=== PATIENT | male | born 1975 | race African-American/Black ===

== ENCOUNTER 2021-06-06 00:45 | Emergency (ER) | payer OTHER, MEDICAID ==
[~2021-06-06] VITALS: Ht 180.3 cm; Wt 122.5 kg
[2021-06-06 03:26] VITALS: BP 160/104
[2021-06-06] MEDS ORDERED: KETOROLAC TROMETH 60MG/2ML VIAL IM ONE (03:45)
== END 2021-06-06 03:41 | disposition home or self-care (01) ==
LOC: ER 00:49
DX: M17.12 Unilateral primary osteoarthritis, left knee (principal); E66.9 Obesity, unspecified; Z68.37 Body mass index [BMI] 37.0-37.9, adult
CPT/HCPCS: 73562; 96372; 99283; J1885

== ENCOUNTER 2022-02-07 04:57 | Emergency (ER) | payer OTHER, MEDICAID ==
[~2022-02-07] VITALS: Ht 180.3 cm; Wt 68.5 kg
[2022-02-07 07:06] LABS: Albumin 3.2 g/dL (3.4-5.0); BUN/Creatinine Ratio 12.4; Calcium 8.8 mg/dL (8.5-10.1); Magnesium 2.1 mg/dL (1.6-2.6); Potassium 4.3 mmol/L (3.5-5.1)
[2022-02-07 07:10] LABS: Basophils # (auto) 0 10 ^3/uL (0-0.2); Basophils % (auto) 0.7 % (0.0-2.0); Eosinophils # (auto) 0.1 10 ^3/uL (0-0.8); Hemoglobin 13.4 g/dL (13.5-17.5); Lymphocytes % (auto) 32.3 % (10.0-50.0); Mean Corpuscular Hemoglobin 31.2 pg (28.0-32.0); Mean Corpuscular Hgb Conc. 33.4 g/dL (32.0-36.0); Mean Corpuscular Volume 93.6 fL (80.0-100.0); Monocytes # (auto) 0.5 10 ^3/uL (0-1.3); Monocytes % (auto) 7.2 % (0.0-12.0); Neutrophils # (auto) 3.7 10 ^3/uL (1.6-8.6); Neutrophils % (auto) 58.8 % (37.0-80.0); Nucleated Red Blood Cells % 0.2 %; Red Blood Cells 4.27 10^6/uL (4.5-5.90); Red Cell Distribution Width 13.1 % (11.8-14.3); White Blood Cell 6.3 10^3/uL (4.4-10.8)
[2022-02-07 07:12] LABS: Partial Thromboplastin Time 24.1 sec (23.6-33.0)
[2022-02-07 07:15] LABS: Bilirubin, Total 0.3 mg/dL (0.2-1.0); Total Protein 6.7 g/dL (6.4-8.2)
[2022-02-07] MEDS ORDERED: SODIUM CHLORIDE 0.9% 1,000 ML IV ONE (10:15)
[2022-02-07 10:35] LABS: Urine Bacteria NONE SEEN /hpf (None Seen); Urine Blood Negative /uL (Negative); Urine Specific Gravity 1.023 (1.001-1.035); Urine WBC <1 /hpf (0 - 3)
[2022-02-07 12:00] VITALS: BP 126/86
== END 2022-02-07 12:27 | disposition home or self-care (01) ==
LOC: ER 04:57 → EDBD 04:57 → ER 12:27
DX: R55 Syncope and collapse (principal)
CPT/HCPCS: 36415; 70450; 71045; 80053; 81001; 83735; 83880; 84443; 84484; 85025; 85610; 85730; 93005; 96360; 99285; J7030

== ENCOUNTER 2023-09-10 07:16 | Emergency (ER) | payer OTHER, MEDICAID ==
[~2023-09-10] VITALS: Ht 182.9 cm; Wt 123.9 kg
[~2023-09-10 07:16] MED LIST: CYCL-837 PO; NAP500T PO
[2023-09-10 07:50] VITALS: BP 121/86; PULSE 102; RESP 18; TEMP 97.7; O2SAT 97
[2023-09-10] MEDS ORDERED: METH-1182 PO (08:00)
[2023-09-10] MEDS ORDERED: KETOROLAC TROMETH 60MG/2ML VIAL IM ONE (08:00)
== END 2023-09-10 08:34 | disposition home or self-care (01) ==
LOC: ER 07:16
DX: M54.42 Lumbago with sciatica, left side (principal); M54.41 Lumbago with sciatica, right side; I10 Essential (primary) hypertension; F17.210 Nicotine dependence, cigarettes, uncomplicated; Z79.899 Other long term (current) drug therapy
CPT/HCPCS: 96372; 99283; J1885

== ENCOUNTER 2024-03-17 14:17 | Emergency (ER) | payer BC, MEDICAID ==
[~2024-03-17] VITALS: Ht 180.3 cm; Wt 121.7 kg
[~2024-03-17 14:17] MED LIST changes: +METH-1182 PO
[2024-03-17 15:03] LABS: Urine Bacteria None Seen /hpf (None Seen)
[2024-03-17 15:15] LABS: Urine Blood Negative /uL (Negative); Urine Clarity Clear (Clear); Urine Color Light-Yellow (Yellow); Urine Mucus FEW (None Seen); Urine Protein, UAD Negative (Negative); Urine Specific Gravity 1.016 (1.001-1.035); Urine Urobilinogen Normal (Negative); Urine WBC 1 /hpf (0 - 3); Urine pH 6.5 (5.0-9.0)
[2024-03-17 16:07] VITALS: BP 134/93; PULSE 101; RESP 16; TEMP 97.4; O2SAT 96
[2024-03-17] MEDS ORDERED: NAP500T PO (16:12)
[2024-03-17] MEDS ORDERED: METH4PAK PO (16:12)
[2024-03-17] MEDS: KETOROLAC TROMETH 60MG/2ML VIAL IM ONE (16:18)
[2024-03-17] MEDS: methylPREDNISolone SOD SUCC 125 MG/2 ML VL IM ONE (16:18)
== END 2024-03-17 16:24 | disposition home or self-care (01) ==
LOC: ER 14:17
DX: M54.32 Sciatica, left side (principal); M54.31 Sciatica, right side; F17.210 Nicotine dependence, cigarettes, uncomplicated; I10 Essential (primary) hypertension
CPT/HCPCS: 81001; 96372; 99284; J1885; J2919

== ENCOUNTER 2024-04-12 23:11 | Emergency (ER) | payer BC, MEDICAID ==
[~2024-04-12] VITALS: Ht 180.3 cm; Wt 111.0 kg
[~2024-04-12 23:11] MED LIST changes: +METH4PAK PO
[2024-04-13 00:16] VITALS: BP 100/85; PULSE 85; RESP 16; TEMP 98.7; O2SAT 98
[2024-04-13] MEDS: KETOROLAC TROMETH 60MG/2ML VIAL IM ONE (02:19)
== END 2024-04-13 02:45 | disposition home or self-care (01) ==
LOC: ER 23:11
DX: M54.50 Low back pain, unspecified (principal); G89.29 Other chronic pain; I10 Essential (primary) hypertension; F17.210 Nicotine dependence, cigarettes, uncomplicated
CPT/HCPCS: 96372; 99283; J1885